=== PATIENT | female | born 1955 | race Caucasian/White ===

== ENCOUNTER 2017-03-25 23:10 | Emergency (ER) | payer OTHER ==
[~2017-03-25] VITALS: Ht 165.1 cm; Wt 117.9 kg
[~2017-03-25 23:10] MED LIST: CIPROFLOXACIN500 MG PO
[2017-03-25 23:45] LABS: BASO % 0.4 % (0.0-1.0); EOS # 0.2 10*3/uL (0.0-0.4); EOS % 3.2 % (1.0-4.0); HEMATOCRIT 37.7 % (37.0-47.0); HEMOGLOBIN 12.5 g/dl (12.0-16.0); LYMPH # 1.3 10*3/uL (1.3-4.4); LYMPH % 26.5 % (27.0-41.0); MEAN CELL VOLUME 94.5 fl (81.0-99.0); MEAN CORPUSCULAR HGB 31.3 pg (27.0-31.0); MEAN CORPUSCULAR HGB CONC 33.2 g/dl (33.0-37.0); MEAN PLATELET VOLUME 9.3 fl (9.6-12.3); MONO # 0.5 10*3/uL (0.1-1.0); MONO % 8.9 % (3.0-9.0); NEUT # 3.1 10*3/uL (2.3-7.9); NEUT % 60.8 % (47.0-73.0); PLATELET COUNT AUTOMATED 206 10*3/uL (130-400); RED BLOOD COUNT 3.99 10*6/uL (4.10-5.10); RED CELL DISTRI WIDTH 13.2 % (0-14.5); WHITE BLOOD COUNT 5.1 10*3/uL (4.8-10.8)
[2017-03-26 00:03] LABS: ALBUMIN 3.3 gm/dl (3.1-4.5); ALKALINE PHOSPHATASE 69 U/L (45-117); BUN 24 mg/dl (7-24); CHLORIDE 107 mmol/L (98-107); CREATININE 0.84 mg/dL (0.55-1.02); POTASSIUM 4.1 mmol/L (3.5-5.1); SGOT/AST 21 IU/L (3-35); SGPT/ALT 30 U/L (12-78); SODIUM 143 mmol/L (136-145); TOTAL PROTEIN 6.5 gm/dL (6.4-8.2)
== END 2017-03-26 00:31 | disposition home or self-care (01) ==
LOC: ED 23:10
PROVIDERS: Physician Assistant
DX: R60.0 Localized edema (principal)

== ENCOUNTER → 2017-07-26 | Outpatient (CLI) | payer OTHER ==
[2017-07-26 10:50] LABS: HEMATOCRIT 41.4 % (37.0-47.0); HEMOGLOBIN 13.6 g/dl (12.0-16.0); MEAN CORPUSCULAR HGB 31.2 pg (27.0-31.0); MEAN CORPUSCULAR HGB CONC 32.9 g/dl (33.0-37.0); MEAN PLATELET VOLUME 9.3 fl (9.6-12.3); RED BLOOD COUNT 4.36 10*6/uL (4.10-5.10); RED CELL DISTRI WIDTH 13.2 % (0-14.5); WHITE BLOOD COUNT 4.5 10*3/uL (4.8-10.8)
[2017-07-26 11:25] LABS: ALBUMIN 3.6 gm/dl (3.1-4.5); ALKALINE PHOSPHATASE 93 U/L (45-117); BUN 19 mg/dl (7-24); CHLORIDE 106 mmol/L (98-107); CHOLESTEROL 242 mg/dL (<200); CREATININE 0.93 mg/dL (0.55-1.02); HDL CHOLESTEROL 71 mg/dl (40-60); LDL CHOLESTEROL 151 mg/dL (9-159); POTASSIUM 4.4 mmol/L (3.5-5.1); SGOT/AST 19 IU/L (3-35); SGPT/ALT 27 U/L (12-78); SODIUM 144 mmol/L (136-145); TOTAL PROTEIN 7.2 gm/dL (6.4-8.2); TRIGLYCERIDES 102 mg/dl (<150); VLDL CHOLESTEROL 20 mg/dL (6-40)
== END | disposition home or self-care (01) ==
LOC: LAB 10:29
PROVIDERS: Family Medicine
DX: E55.9 Vitamin D deficiency, unspecified (principal); E78.00 Pure hypercholesterolemia, unspecified; M19.90 Unspecified osteoarthritis, unspecified site; M79.606 Pain in leg, unspecified; R60.0 Localized edema

== ENCOUNTER → 2017-10-07 | Outpatient (CLI) | payer OTHER | END | disposition home or self-care (01) | LOC: RAD 15:02 | DX: M19.042 Primary osteoarthritis, left hand (principal); M19.041 Primary osteoarthritis, right hand ==

== ENCOUNTER 2018-10-12 02:55 | Emergency (ER) | payer OTHER, MEDICARE ==
[~2018-10-12] VITALS: Ht 165.1 cm; Wt 122.5 kg
[2018-10-12] MEDS ORDERED: MEDROL DOSEPAK4 MG PO (03:41)
== END 2018-10-12 04:23 | disposition home or self-care (01) ==
LOC: ED 02:55
DX: M54.31 Sciatica, right side (principal); Z91.040 Latex allergy status

== ENCOUNTER 2018-11-16 21:43 | Emergency (ER) | payer OTHER, MEDICARE ==
[~2018-11-16] VITALS: Wt 124.7 kg
[~2018-11-16 21:43] MED LIST changes: +MEDROL DOSEPAK4 MG PO
[2018-11-16 22:30] LABS: HEMATOCRIT 45.1 % (37.0-47.0); HEMOGLOBIN 13.4 g/dl (12.0-16.0); MEAN CELL VOLUME 107.4 fl (81.0-99.0); MEAN CORPUSCULAR HGB 31.9 pg (27.0-31.0); MEAN CORPUSCULAR HGB CONC 29.7 g/dl (33.0-37.0); MEAN PLATELET VOLUME 9.7 fl (9.6-12.3); NUCLEATED RED BLOOD CELL 0.1 10*3/uL (0.0-0.0); PLATELET COUNT AUTOMATED 152 10*3/uL (130-400); RED CELL DISTRI WIDTH 12.9 % (0-14.5); WHITE BLOOD COUNT 6.2 10*3/uL (4.8-10.8)
[2018-11-16 22:45] LABS: ALBUMIN 2.9 gm/dl (3.1-4.5); CREATININE 1.84 mg/dL (0.55-1.02); POTASSIUM 4.2 mmol/L (3.5-5.1); TOTAL PROTEIN 5.9 gm/dL (6.4-8.2)
[2018-11-16] MEDS ORDERED: FUROSEMIDE40 MG PO (22:45)
[2018-11-16 23:06] LABS: ATYPICAL LYMPHS 2 % (0-0); PLATELET SUFFICIENCY NORMAL (NORMAL); ROULEAUX SLIGHT; TOTAL CELLS COUNTED 100 #CELLS
== END 2018-11-16 22:21 | disposition expired ==
LOC: ED 21:43
PROVIDERS: Internal Medicine
DX: I46.9 Cardiac arrest, cause unspecified (principal); R78.89 Finding of other specified substances, not normally found in blood; Z95.5 Presence of coronary angioplasty implant and graft; Z79.899 Other long term (current) drug therapy